=== PATIENT | male | born 1940 | race Caucasian/White ===

== ENCOUNTER 2021-01-20 16:07 | Emergency (ER) | payer MEDICARE, OTHER ==
[~2021-01-20] VITALS: Ht 177.8 cm; Wt 87.3 kg
[2021-01-20 17:13] LABS: BASOPHILS % (AUTO) 0.5 % (0-1); EOSINOPHILS # (AUTO) 0.2 X10'3 (0-0.9); EOSINOPHILS % (AUTO) 2.7 % (0-6); HEMATOCRIT 31.6 % (42.0-52.0); LYMPHOCYTES # (AUTO) 0.6 X10'3 (1.1-4.8); LYMPHOCYTES % (AUTO) 10.2 % (21-51); MEAN CORPUSCULAR HEMOGLOBIN 32.2 PG (27.0-31.0); MEAN CORPUSCULAR HGB CONC 34.8 g/dL (33.0-36.5); MEAN CORPUSCULAR VOLUME 92.5 FL (78-98); MEAN PLATELET VOLUME 8.7 FL (7.4-10.4); MONOCYTES # (AUTO) 0.9 X10'3 (0-0.9); MONOCYTES % (AUTO) 15.2 % (2-12); NEUTROPHILS % (AUTO) 71.4 % (42-75); PLATELET COUNT 139 X10'3 (140-440); RED BLOOD COUNT 3.42 X10'6 (4.70-6.10); RED CELL DISTRIBUTION WIDTH 14.3 % (11.5-14.5); WHITE BLOOD COUNT 5.6 X10'3 (4.5-11.0)
[2021-01-20 17:15] LABS: ALANINE AMINOTRANSFERASE 15 U/L (12-78); ALKALINE PHOSPHATASE 74 IU/L (46-116); ANION GAP 14 (8-16); ASPARTATE AMINO TRANSFERASE 28 U/L (10-37); BILIRUBIN,TOTAL 0.2 MG/DL (0.1-1.0); BLOOD UREA NITROGEN 48 MG/DL (7-18); BUN/CREATININE RATIO 25.7 (5.4-32.0); CALCIUM 8.4 MG/DL (8.5-10.1); CHLORIDE 107 MMOL/L (99-107); CREATININE 1.87 MG/DL (0.60-1.10); GLUCOSE 90 MG/DL (70-104); POTASSIUM 4.3 MMOL/L (3.5-5.1); SODIUM 142 MMOL/L (135-145); TOTAL CARBON DIOXIDE 21.1 MMOL/L (24-32); TOTAL PROTEIN 6.1 G/DL (6.4-8.2); eGFR 35 ML/MIN
[2021-01-20 17:41] LABS: PLATELET ESTIMATE DECREASED
[2021-01-20 17:42] LABS: ELLIPTOCYTES 1+; POLYCHROMASIA FEW; SCHISTOCYTES FEW
[2021-01-20] MEDS ORDERED: CASIRIVIMAB/IMDEVIMAB inject. 10 ML in normal saline 100ml IV soln 100 ML IV ONE (19:30)
[2021-01-20 20:23] VITALS: BP 163/73
== END 2021-01-20 21:24 | disposition home or self-care (01) ==
LOC: ER 16:08
DX: U07.1 COVID-19 (principal); I71.9 Aortic aneurysm of unspecified site, without rupture; Z88.0 Allergy status to penicillin; Z88.8 Allergy status to other drugs, medicaments and biological substances
CPT/HCPCS: 36415; 71045; 80053; 85008; 85025; 87635; 99284; C9803; M0243; Q0244

== ENCOUNTER 2022-06-26 11:03 | Day surgery (SDC) | payer OTHER ==
[2022-06-26] VITALS (15 sets, daily range): BP systolic 114–201; BP diastolic 59–104
[~2022-06-26] VITALS: Ht 152.4 cm; Wt 97.8 kg
[2022-06-26] MEDS ORDERED: normal saline 1000ml 1,000 ML IV PRN (11:35)
[2022-06-26 11:53] LABS: BASOPHILS % (AUTO) 0.8 % (0-1); EOSINOPHILS # (AUTO) 0.3 X10'3 (0-0.9); EOSINOPHILS % (AUTO) 5.4 % (0-6); HEMATOCRIT 37.6 % (42.0-52.0); HEMOGLOBIN 12.2 g/dl (14.0-17.9); LYMPHOCYTES # (AUTO) 0.9 X10'3 (1.1-4.8); LYMPHOCYTES % (AUTO) 13.9 % (21-51); MEAN CORPUSCULAR HGB CONC 32.5 g/dL (33.0-36.5); MEAN CORPUSCULAR VOLUME 95.4 FL (78-98); MEAN PLATELET VOLUME 8.1 FL (7.4-10.4); MONOCYTES # (AUTO) 0.6 X10'3 (0-0.9); MONOCYTES % (AUTO) 9.7 % (2-12); NEUTROPHILS # (AUTO) 4.3 X10'3 (1.8-7.7); NEUTROPHILS % (AUTO) 70.2 % (42-75); PLATELET COUNT 174 X10'3 (140-440); RED BLOOD COUNT 3.94 X10'6 (4.70-6.10); RED CELL DISTRIBUTION WIDTH 15.7 % (11.5-14.5); WHITE BLOOD COUNT 6.2 X10'3 (4.5-11.0)
[2022-06-26] MEDS ORDERED: FERR240T5 PO (12:02)
[2022-06-26] MEDS ORDERED: CLOP-32 PO (12:02)
[2022-06-26] MEDS ORDERED: POLY119P2 PO (12:02)
[2022-06-26] MEDS ORDERED: GABA-530 PO (12:02)
[2022-06-26] MEDS ORDERED: ADV50100 IH (12:02)
[2022-06-26] MEDS ORDERED: LOSA25TA96 PO (12:02)
[2022-06-26] MEDS ORDERED: ATOR20TA PO (12:02)
[2022-06-26] MEDS ORDERED: MELA10CA2 PO (12:02)
[2022-06-26] MEDS ORDERED: LEVO75TA PO (12:02)
[2022-06-26] MEDS ORDERED: CARV-50 PO (12:02)
[2022-06-26] MEDS ORDERED: FLUT15.815 NAS (12:02)
[2022-06-26] MEDS ORDERED: ASPI81TA52 PO (12:02)
[2022-06-26] MEDS ORDERED: FURO40TA4 PO (12:02)
[2022-06-26] MEDS ORDERED: TIOT18CA3 INH (12:02)
[2022-06-26] MEDS ORDERED: Focus Factor PO (12:02)
[2022-06-26] MEDS ORDERED: LORA-641 PO (12:02)
[2022-06-26] MEDS ORDERED: [UNRECOGNIZED DRUG - CODE] PO (12:02)
[2022-06-26] MEDS ORDERED: ZINC50CA2 PO (12:02)
[2022-06-26] MEDS ORDERED: SERT25TA PO (12:02)
[2022-06-26] MEDS ORDERED: DESMOPRESSIN IV ONE (12:20)
[2022-06-26] MEDS ORDERED: NORMAL SALINE IV ONE (12:20)
[2022-06-26] MEDS ORDERED: midazolam 1 mg/ML 2ml injection ONE (12:45)
[2022-06-26] MEDS ORDERED: fentaNYL/PF 50MCG/1 ML 2ML syringe ONE (12:46)
[2022-06-26] MEDS ORDERED: LIDOcaine 1% (10mg/ml) 2ml vial ONE (12:46)
[2022-06-26] MEDS ORDERED: gelatin sponge, absorbable (Gelfoam 12-7MM) sponge TP ONE (13:03)
== END 2022-06-26 16:00 | disposition home or self-care (01) ==
LOC: SSTAY O 11:03
PROVIDERS: ATTEND Radiology Vascular & Interventional Radiology
DX: R80.9 Proteinuria, unspecified (principal); N17.9 Acute kidney failure, unspecified; J44.9 Chronic obstructive pulmonary disease, unspecified; Z88.0 Allergy status to penicillin; Z88.8 Allergy status to other drugs, medicaments and biological substances; Z79.82 Long term (current) use of aspirin; Z79.899 Other long term (current) drug therapy; Z79.01 Long term (current) use of anticoagulants; Z72.89 Other problems related to lifestyle; Z87.891 Personal history of nicotine dependence
CPT/HCPCS: 36415; 50200; 77012; 85025; 85610; 99152; 99153; J2250; J3010; J3490; J7030; A4615